=== PATIENT | male | born 1935 | race Caucasian/White ===

== ENCOUNTER → 2019-06-13 | Outpatient (CLI) | payer MEDICARE, OTHER ==
[~2019-06-13] MED LIST: AMOXICILLIN 8751 TAB PO; ASPIRIN 81M81 MG/TA2 PO; BETAPACE 120MG120 MG PO; BETAPACE 80MG80 MG PO; CALCIUM GLUCONA50 MG PO; COREG 6.256.25 MG/TA PO; COUMADIN 5MG5 MG/TAB PO; COZAAR 25MG25 MG/TAB PO; CUBICIN 500MG500 MG IV; LASIX 20MG TABL20 MG PO; LASIX 40MG TABL40 MG PO; MULTIPLE VITAMI1 CAP PO; PROAMATINE 5MG T5 MG PO; XARELTO20 MG PO; ZOCOR 20MG20 MG PO
== END ==
LOC: COL.RAD 08:49
DX: M48.56XD Collapsed vertebra, not elsewhere classified, lumbar region, subsequent encounter for fracture with routine healing (principal); Z98.1 Arthrodesis status
CPT/HCPCS: A9503

== ENCOUNTER 2019-07-14 08:43 | Outpatient (CLI) | payer MEDICARE, OTHER ==
[~2019-07-14] VITALS: Ht 175.3 cm; Wt 89.1 kg
[2019-07-14 09:32] LABS: HEMATOCRIT 38.3 % (42.0-52.0); HEMOGLOBIN 12.2 g/dl (13.5-18.0); MEAN CELL VOLUME 89 fl (80.0-100.0); MEAN CORPUSCULAR HEMOGLOBIN 28 pg (27.0-31.0); MEAN CORPUSCULAR HGB CONC 32 g/dl (33.0-37.0); MEAN PLATELET VOLUME 9.8 fl (7.4-10.4); PLATELET COUNT 219 K/mm3 (130-400); RED BLOOD COUNT 4.31 M/mm3 (4.20-5.60); REDCELL DISTRIBUTION WIDTH-CV 15.1 % (11.5-14.5)
[2019-07-14] MEDS ORDERED: NEURONTIN100 MG/CAP PO (09:32)
[2019-07-14] MEDS ORDERED: LIPITOR20 MG PO (09:32)
[2019-07-14 09:36] LABS: INR 1.9 (0.8-3.0); PROTHROMBIN TIME 22.2 SECONDS (9.7-12.8)
[2019-07-14] MEDS ORDERED: CASODEX 50MG TA50 MG PO (09:36)
[2019-07-14] MEDS ORDERED: ELIGARD7.5 MG IJ (09:37)
[2019-07-14] MEDS ORDERED: FLOMAX 0.40.4 MG/CAP PO (09:38)
[2019-07-14] MEDS ORDERED: TOPROL XL 50MG50 MG PO (09:38)
[2019-07-14] MEDS ORDERED: COZAAR 50MG50 MG/TAB PO (09:49)
[2019-07-14] MEDS ORDERED: TOPROL XL100 MG PO (09:50)
[2019-07-14 09:55] LABS: CALCIUM 9.3 mg/dL (8.4-10.2); CREATININE, serum 0.84 (0.66-1.25)
[2019-07-14 10:20] VITALS: BP 90/68; PULSE 89; TEMP 97.5
[2019-07-14 10:47] VITALS: BP 102/68; PULSE 90; TEMP 97.5
--- NOTE | 2019-07-14 10:47 | NUR ---
IV discontinued intact. Discharge instructions given. Transferred to private car by mirian
== END 2019-07-14 10:55 | disposition home or self-care (01) ==
LOC: COL.RAD 08:43
PROVIDERS: Internal Medicine Cardiovascular Disease
DX: I48.91 Unspecified atrial fibrillation (principal); R93.1 Abnormal findings on diagnostic imaging of heart and coronary circulation
CPT/HCPCS: J2704

== ENCOUNTER → 2019-08-14 | Outpatient (CLI) | payer MEDICARE, OTHER ==
[~2019-08-14] MED LIST changes: +CASODEX 50MG TA50 MG PO; +COZAAR 50MG50 MG/TAB PO; +ELIGARD7.5 MG IJ; +FLOMAX 0.40.4 MG/CAP PO; +LIPITOR20 MG PO; +NEURONTIN100 MG/CAP PO; +TOPROL XL 50MG50 MG PO; +TOPROL XL100 MG PO
== END ==
LOC: COL.RAD 14:41 → COL.LAB 14:41 → COL.RAD 15:30
DX: R59.0 Localized enlarged lymph nodes (principal); R06.02 Shortness of breath
CPT/HCPCS: Q9967